=== PATIENT | female | born 1965 | race African-American/Black ===

== ENCOUNTER 2022-01-23 04:29 | Day surgery (SDC) | payer OTHER ==
[2022-01-06 15:10] VITALS: BMI 36.1
[2022-01-23] MEDS ORDERED: MIDAZOLAM HCL 2 MG/2 ML SINGLE DOSE VIAL ONE (12:09)
[2022-01-23] MEDS ORDERED: FENTANYL CITRATE/PF 50 MCG/ML VIAL ONE ×4 (12:09→15:47)
[2022-01-23] MEDS ORDERED: PROPOFOL 20 ML ONE (12:09)
[2022-01-23] MEDS ORDERED: LIDOCAINE HCL/PF 2% SDV 5ML VIAL ONE (12:12)
[2022-01-23] MEDS ORDERED: BUPIVACAINE HCL/PF 0.5% (5MG/ML) 10 ML VIAL ONE (12:20)
[2022-01-23] MEDS ORDERED: LIDOCAINE HCL 1%, 10 MG/ML (20ML VIAL) ONE (12:20)
[2022-01-23] MEDS ORDERED: ISOSULFAN BLUE 50 MG/5 ML VIAL SQ ONE (12:20)
[2022-01-23] MEDS ORDERED: DEXAMETHASONE SOD PHOSPHATE 4 MG/1 ML VIAL ONE (13:28)
[2022-01-23] MEDS ORDERED: ONDANSETRON 4 MG/2 ML VIAL ONE (13:28)
[2022-01-23] MEDS ORDERED: GLYCOPYRROLATE 0.2 MG/1 ML VIAL ONE (13:29)
[2022-01-23] MEDS ORDERED: PHENYLEPHRINE HCL 10 MG/1 ML SINGLE DOSE VIAL ONE (13:58)
[2022-01-23] MEDS ORDERED: ONDANSETRON 4 MG/2 ML VIAL IVPUSH PRN (14:36)
[2022-01-23] MEDS ORDERED: LACTATED RINGERS SOLUTION 1,000 ML IV SCH (14:45)
[2022-01-23] MEDS ORDERED: oxyCODONE HCL 5 MG TABLET PO PRN (17:36)
[2022-01-23 18:03] VITALS: RESP 20; TEMP 97.8
[2022-01-23 19:03] VITALS: BP 111/59; PULSE 59
== END 2022-01-23 18:30 | disposition home or self-care (01) ==
LOC: JASU-SURG 04:29
PROVIDERS: ATTEND Surgery
PROC: 0HBU0ZZ Excision of Left Breast, Open Approach (ICD-10-PCS; principal; 2022-01-23 13:42)
DX: D05.92 Unspecified type of carcinoma in situ of left breast (principal); D24.2 Benign neoplasm of left breast
CPT/HCPCS: 19281; 19282; 76098-TC-FY; 78195-TC; 88307-TC; 88341-TC; 88342-TC; 94760; A9541

== ENCOUNTER 2022-03-19 03:54 | Day surgery (SDC) | payer OTHER ==
[2022-03-02 14:47] VITALS: BMI 36.1
[2022-03-19] MEDS ORDERED: LIDOCAINE HCL 1%, 10 MG/ML (20ML VIAL) ONE ×2 (07:14→07:53)
[2022-03-19] MEDS ORDERED: BUPIVACAINE HCL/PF 0.5% (5MG/ML) 10 ML VIAL ONE (07:14)
[2022-03-19] MEDS ORDERED: METHYLENE BLUE 50 MG/10 ML AMPUL ONE (07:16)
[2022-03-19] MEDS ORDERED: BENZOIN/ALOE VERA/STORAX/TOLU 58 ML BOTTLE ONE (07:16)
[2022-03-19] MEDS ORDERED: PROPOFOL 60 ML ONE (07:36)
[2022-03-19] MEDS ORDERED: MIDAZOLAM HCL 2 MG/2 ML SINGLE DOSE VIAL ONE ×2 (07:36→09:12)
[2022-03-19] MEDS ORDERED: ceFAZolin SODIUM 1 GM VIAL IVPB ONE (07:43)
[2022-03-19] MEDS ORDERED: ceFAZolin SODIUM 1 GM VIAL ONE (07:45)
[2022-03-19] MEDS ORDERED: LIDOCAINE HCL 1%, 10 MG/ML (20ML VIAL) NR ONE ×2 (07:53)
[2022-03-19] MEDS ORDERED: MINERAL OIL/PETROLATUM,WHITE 3.5 GM TUBE ONE (08:16)
[2022-03-19] MEDS ORDERED: ONDANSETRON 4 MG/2 ML VIAL IVPUSH PRN (09:23)
[2022-03-19] MEDS ORDERED: oxyCODONE HCL 5 MG TABLET PO PRN (09:23)
[2022-03-19] MEDS ORDERED: ACETAMINOPHEN 1000 MG/100 ML BAG IVPB PRN (09:24)
[2022-03-19] MEDS ORDERED: LACTATED RINGERS SOLUTION 1,000 ML IV SCH (09:30)
[2022-03-19 10:30] VITALS: RESP 18
[2022-03-19 11:14] VITALS: PULSE 58
[2022-03-19] MEDS ORDERED: ACETAMINOPHEN INJECTION 100 ML IVPB ONE (11:19)
[2022-03-19 12:59] VITALS: BP 146/75; TEMP 97.5
== END 2022-03-19 13:20 | disposition home or self-care (01) ==
LOC: JASU-SURG 03:54
PROVIDERS: ATTEND Surgery
PROC: 0HBU0ZZ Excision of Left Breast, Open Approach (ICD-10-PCS; principal; 2022-03-19 07:30)
DX: C50.912 Malignant neoplasm of unspecified site of left female breast (principal)
CPT/HCPCS: 81025; 88305-TC; 88307-TC; 94760; Q9968